=== PATIENT | male | born 1960 | race Two or more races ===

== ENCOUNTER 2018-10-07 17:22 | Emergency (ER) | payer OTHER ==
[~2018-10-07] VITALS: Ht 172.7 cm; Wt 82.6 kg
[2018-10-07 18:02] VITALS: Ht 172.7 cm; Wt 82.6 kg
--- NOTE | 2018-10-07 21:09 | ERD ---
ER Documentation Chief Complaint Chief Complaint VISION PROBLEMS X 1 DAY HPI 58yo male with history of left eye pterygium presents for left eye floater x1 day. He states he sees black floaters. Denies blurry vision. Denies fever, headache. Denies eye pain. ROS All systems reviewed and are negative except as per history of present illness. Allergies Allergies: Coded Allergies: No Known Allergy (Unverified , 10/07/18) PMhx/Soc Hx Cardiac Disorders: Yes (HTN) Hx Alcohol Use: No Hx Substance Use: No Hx Tobacco Use: No Smoking Status: Never smoker Physical Exam Vitals Vital Signs Date Temp Pulse Resp B/P (MAP) Pulse Ox O2 O2 Flow FiO2 Time Delivery Rate 10/07/18 98.7 73 16 154/90 99 18:02 (111) Physical Exam Const: No acute distress Head: Atraumatic Eyes: No conjunctival injection is noted, left eye pteryguim noted, EOMI bilaterally, PERRL bilaterally, visual acuity left 20/30, right 20/40, bilateral 20/30 ENT: Normal External Ears, Nose and Mouth. Neck: Full range of motion. No meningismus. Resp: Clear to auscultation bilaterally Cardio: Regular rate and rhythm, no murmurs Skin: No petechiae or rashes Ext: No cyanosis, or edema Neur: Awake and alert Psych: Normal Mood and Affect Procedures/MDM Medical Decision Making: Differential diagnosis includes but not limited to retinal tear, retinal detachment, uveitis, iritis, conjunctivae Patient appeared well on physical exam. Visual acuity intact Given possibility of retinal detachment patient advised that we need to follow with ophthalmology urgently. Given information for follow-up. Patient advised to follow up with PCP in 1-2 days. Patient advised to return to ED for new or worsening symptoms. Patient stable on discharge from the ED. Disclaimer: Inadvertent spelling and grammatical errors are likely due to EHR/dictation software use and do not reflect on the overall quality of patient care. Also, please note that the electronic time recorded on this note does not necessarily reflect the actual time of the patient encounter. Departure Diagnosis: Primary Impression: Floaters Laterality: left Qualified Codes: H43.392 - Other vitreous opacities, left eye Condition: Fair Patient Instructions: Retinal Detachment, Retinal Tear Referrals: AMBIKA BHAKTA DOREEN T MD HOVANESIAN, HAROUTUN H. KANDAVEL,NIKA MEEKS,REENA BERMAN,SALLY CHATMAN,JU EARL,SADIA GARCIA,EUNICE CHAIDEZ,TENZIN REID,JESSE MILLER,MADIHA PIZANO,CHARLES MARCUM,SWATI SCHMIDT,CLAUS CARLOS,NEIDA GREENE,SRINIVAS MORRIS [facility] Hours: Mon - Fri 9:00 AM - 5:00 PM Additional Instructions: Call your primary care doctor TOMORROW for an appointment during the next 1-2 days.See the doctor sooner or return here if your condition worsens before your appointment time. Follow up with ophthalmology tomorrow at the numbers provided or call PCP for urgent referral. DIANA REED DO Oct 07, 2018 21:09
[2018-10-07 21:30] VITALS: BP 183/90; PULSE 70; RESP 16
== END 2018-10-07 21:30 | disposition home or self-care (01) ==
LOC: FTE 17:22
DX: H43.392 Other vitreous opacities, left eye (principal); I10 Essential (primary) hypertension
CPT/HCPCS: 99282

== ENCOUNTER 2018-10-08 20:11 | Emergency (ER) | payer SELFPAY ==
[~2018-10-08] VITALS: Ht 172.7 cm; Wt 82.1 kg
[2018-10-08 20:19] VITALS: BP 159/105; PULSE 78; RESP 16; Ht 172.7 cm; Wt 82.1 kg
== END 2018-10-08 22:04 | disposition left against medical advice (07) ==
LOC: FTE 20:11
DX: Z53.21 Procedure and treatment not carried out due to patient leaving prior to being seen by health care provider (principal)